=== PATIENT | female | born 1985 | race Caucasian/White ===

== ENCOUNTER 2019-10-23 12:22 | Emergency (ER) | payer BC ==
[~2019-10-23] VITALS: Ht 172.7 cm; Wt 99.8 kg
[2019-10-23 12:22] VITALS: BP 147/81
== END 2019-10-23 13:02 | disposition home or self-care (01) ==
LOC: ER 12:22
DX: M79.2 Neuralgia and neuritis, unspecified (principal); Z98.890 Other specified postprocedural states; Z91.018 Allergy to other foods